=== PATIENT | female | born 1975 ===

== ENCOUNTER 2016-11-12 13:23 | Inpatient (IN) | payer MEDICAID, OTHER ==
[2016-11-12 13:35] VITALS: BMI 36.6
--- NOTE | 2016-11-12 14:17 | ED PDOC ---
Arrival/HPI - General Chief Complaint: Anxiety Time Seen by Provider: 11/12/16 14:00 Historian: Patient - History of Present Illness Narrative History of Present Illness (Text): 11/12/16 14:00 A 41 year old female, whose past medical history includes anxiety, presents to the emergency department with complaints of anxiety. Patient reports symptoms started about 2 months ago, have become more exacerbated over the past two weeks , and especially worsened within the last 2 days. Patient reports intermittent shortness of breath, chest pain, light headedness, arm numbness, nausea, heartburn, diaphoresis, chest palpitations, polyuria, depression, and is restless. She states she is "terrified of snakes popping out of drawers and other places" and "leaving her house". Patient denies any suicidal ideation/ homicidal ideation, vomiting, dysuria, diarrhea, or any other symptoms at this time. Patient's last menstrual cycle was at the end of last month to the beginning of this month. On the of note, patient lives with 21 year old daughter. Patient notes in the past she was seeing a reservations manager but when she started to feel better she stopped going. PMD: None Time/Duration: Other (2 months) Symptom Onset: Gradual Symptom Course: Worsening Quality: Other Activities at Onset: Rest Context: Home Past Medical History - Provider Review Nursing Documentation Reviewed: Yes - Infectious Disease Hx of Infectious Diseases: None - Tetanus Immunization Tetanus Immunization: Unknown - Gastrointestinal Hx Gastrointestinal Ulcer: Yes (2010) Other/Comment: hernia - Genitourinary/Gynecological Hx Genitourinary Disorders: Yes Hx Urinary Tract Infection: Yes Other/Comment: Kidney Stones - Psychiatric Hx Anxiety: Yes Hx Substance Use: No - Surgical History Hx Appendectomy: Yes Hx Section: Yes (x3) Hx Tubal Ligation: Yes - Anesthesia Hx Anesthesia: Yes Hx Anesthesia Reactions: No Hx Malignant Hyperthermia: No - Suicidal Assessment Feels Threatened In Home Enviroment: No Family/Social History - Physician Review Nursing Documentation Reviewed: Yes Family/Social History: Unknown Family HX Smoking Status: Never Smoked Hx Alcohol Use: No Hx Substance Use: No Hx Substance Use Treatment: No Allergies/Home Meds Allergies/Adverse Reactions: Allergies seafood Allergy (Uncoded 11/12/16 13:35) ANAPHYLAXIS Home Medications: Home Meds Medication Instructions Recorded Confirmed Ranitidine HCl [Zantac 75] 1 tab PO PRN PRN 11/12/16 11/12/16 Review of Systems - Physician Review All systems were reviewed & negative as marked: Yes - Review of Systems Constitutional: absent: Fevers Respiratory: SOB. absent: Cough Cardiovascular: Chest Pain, Palpitations. absent: Edema Gastrointestinal: Nausea, Other (Heartburn). absent: Abdominal Pain, Diarrhea, Vomiting Genitourinary Female: absent: Dysuria Endocrine: Diaphoresis, Polyuria Psychiatric: Anxiety, Depression. absent: Suicidal Ideation Physical Exam Vital Signs Reviewed: Yes Vital Signs Temp Pulse Resp BP Pulse Ox 11/12/16 14:33 97.9 F 86 20 131/73 99 11/12/16 13:38 97.7 F 76 19 132/85 100 Temperature: Afebrile Blood Pressure: Normal Pulse: Regular Respiratory Rate: Normal Appearance: Positive for: Non-Toxic, Other (Patient appears anxious, restless, and unable to sit.) Pain Distress: None Mental Status: Positive for: Alert and Oriented X 3 - Systems Exam Head: Present: Atraumatic, Normocephalic Pupils: Present: PERRL Conjunctiva: Present: Normal Mouth: Present: Moist Mucous Membranes Pharnyx: Present: Normal. No: ERYTHEMA, EXUDATE Neck: Present: Normal Range of Motion Respiratory/Chest: Present: Clear to Auscultation, Good Air Exchange. No: Respiratory Distress, Accessory Muscle Use Cardiovascular: Present: Regular Rate and Rhythm, Normal S1, S2. No: Murmurs Abdomen: Present: Normal Bowel Sounds, Other (obese). No: Tenderness, Distention, Peritoneal Signs Back: Present: Normal Inspection Upper Extremity: Present: Normal Inspection. No: Cyanosis, Edema Lower Extremity: Present: Normal Inspection. No: Edema Neurological: Present: GCS=15, CN II-XII Intact, Speech Normal Skin: Present: Warm, Dry, Normal Color. No: Rashes Psychiatric: Present: Alert, Oriented x 3, Anxious. No: Suicidal Ideation, Homicidal Ideation Medical Decision Making ED Course and Treatment: 11/12/16 14:00 Impression: A 41 year old female with anxiety. On physical examination the patient appears to be anxious, restless, and unable to sit. Differential Diagnosis include but are not limited to: Anxiety vs. ACS vs. Musculoskeletal chest pain vs. GERD Plan: -- EKG -- Chest X-ray -- Labs -- Urinalysis -- Klonopin -- Reassess and disposition Prior Visits: Notes and results from previous visits were reviewed. The patient last presented to the emergency department on 11/16/14 for evaluation of right sided lower abdominal pain. Progress Notes: Patient is PERC negative and unlikely to have pulmonary embolism. Based on patient's history the diagnoses is most likely anxiety. EKG: Ordered, reviewed, and independently interpreted the EKG. Rate : 76 BPM Rhythm : NSR Interpretation : Normal intervals, normal axis, no ST/T changes 11/12/16 16:52 Patient with noted history and presentation with anxiety. Chest pain workup done in the ED is negative with normal CXR, EKG, and labs including cardiac enzymes. Other labs are also unremarkable. Patient has been medically cleared for PES evaluation and psychiatric admission. 11/12/16 17:03 Patient seen by PES and accepted for admission for depression and anxiety. - Lab Interpretations Lab Results: 11/12/16 15:40 11/12/16 15:40 Lab Results 11/12/16 15:40: Alcohol, Quantitative < 10 11/12/16 15:40: Sodium 137, Potassium 4.2, Chloride 101, Carbon Dioxide 29, Anion Gap 11, BUN 14, Creatinine 0.8, Est GFR ( Amer) > 60, Est GFR (Non- Af Amer) > 60, Random Glucose 90, Calcium 9.5, Magnesium 1.9, Total Bilirubin 0.3, AST 51 H, ALT 67 H, Alkaline Phosphatase 97, Lactate Dehydrogenase 464, Total Creatine Kinase 308 H, CK-MB (CK-2) 2.7, CK-MB (CK-2) % Cancelled, Troponin I < 0.01, NT-Pro-B Natriuret Pep 40.8, Total Protein 7.5, Albumin 4.1, Globulin 3.4, Albumin/Globulin Ratio 1.2, Lipase 69 11/12/16 15:40: WBC 7.0, RBC 4.49, Hgb 12.6, Hct 38.8, MCV 86.4, MCH 28.1, MCHC 32.5, RDW 14.5, Plt Count 236, MPV 9.5, Gran % 59.7, Lymph % (Auto) 30.8, [place] % (Auto) 7.2 H, Eos % (Auto) 2.0, Baso % (Auto) 0.3, Gran # 4.18, Lymph # 2.2, Becker # 0.5, Eos # 0.1, Baso # 0.02 11/12/16 14:00: Urine Opiates Screen Negative, Urine Methadone Screen Negative, Ur Barbiturates Screen Negative, Ur Phencyclidine Scrn Negative, Ur Amphetamines Screen Negative, U Benzodiazepines Scrn Negative, U Oth Cocaine Metabols Negative, U Cannabinoids Screen Negative 11/12/16 14:00: Urine Color Light yellow, Urine Appearance Clear, Urine pH 7.0, Ur Specific [place] 1.010, Urine Protein Negative, Urine Glucose (UA) Negative, Urine Ketones Negative, Urine Blood Negative, Urine Nitrate Negative, Urine Bilirubin Negative, Urine Urobilinogen 0.2, Ur Leukocyte Esterase Negative I have reviewed the lab results: Yes - RAD Interpretation Radiology Orders: 11/12/16 14:06 CHEST TWO VIEWS (PA/LAT) [RAD] Stat - Medication Orders Current Medication Orders: Discontinued Medications Clonazepam (Klonopin) 1 mg PO STAT STA PRN Reason: Protocol Stop: 11/12/16 14:09 Last Admin: 11/12/16 14:28 Dose: 1 mg - Scribe Statement The provider has reviewed the documentation as recorded by the Scribmiguel Cantu training under Tracee Temple Provider Scribe Attestation: All medical record entries made by the Scribe were at my direction and personally dictated by me. I have reviewed the chart and agree that the record accurately reflects my personal performance of the history, physical exam, medical decision making, and the department course for this patient. I have also personally directed, reviewed, and agree with the discharge instructions and disposition. Disposition/Present on Arrival - Present on Arrival Any Indicators Present on Arrival: No History of DVT/PE: No History of Uncontrolled Diabetes: No Urinary Catheter: No History of Decub. Ulcer: No History Surgical Site Infection Following: None - Disposition Have Diagnosis and Disposition been Completed?: Yes Diagnosis: Anxiety Disposition: HOSPITALIZED Disposition Time: 16:45 Patient Plan: Admission Patient Problems: Current Active Problems Problem Status Onset Anxiety Acute Condition: FAIR Referrals: PCP,NO [Primary Care Provider] - Follow up with primary
[2016-11-12 14:31] LABS: URINE BILIRUBIN NEGATIVE (NEGATIVE); URINE BLOOD NEGATIVE (NEGATIVE); URINE GLUCOSE (UA) NEGATIVE (NEGATIVE); URINE KETONE NEGATIVE (NEGATIVE); URINE LEUKOCYTE ESTERASE NEGATIVE Leu/uL (NEGATIVE); URINE PROTEIN NEGATIVE mg/dL (<30 mg/dL); URINE UROBILINOGEN 0.2 E.U./dL (<1 E.U./dL)
[2016-11-12 14:32] LABS: URINE APPEARANCE CLEAR (CLEAR); URINE COLOR LIGHT YELLOW (YELLOW)
[2016-11-12 15:50] LABS: ADD MANUAL DIFF? NO
[2016-11-12 15:54] LABS: BASO # 0.02 K/mm3 (0.0-2.0); BASO % 0.3 % (0.0-3.0); EOS # 0.1 (0.0-0.7); GRAN # 4.18 (1.4-6.5); GRAN % 59.7 % (50.0-68.0); HEMATOCRIT 38.8 % (36.0-48.0); LYMPH # 2.2 (1.2-3.4); LYMPH % 30.8 % (22.0-35.0); MEAN CELL VOLUME 86.4 fL (80.0-105.0); MEAN CORPUSCULAR HEMOGLOBIN 28.1 pg (25.0-35.0); MEAN CORPUSCULAR HGB CONC 32.5 g/dl (31.0-37.0); MEAN PLATELET VOLUME 9.5 fl (7.0-11.0); MONO # 0.5 (0.1-0.6); MONO % 7.2 % (1.0-6.0); PLATELET COUNT 236 10^3/uL (120.0-450.0); RED CELL DISTRIBUTION WIDTH 14.5 % (11.5-14.5)
[2016-11-12 16:04] LABS: ALB/GLOB RATIO 1.2 (1.1-1.8); ALKALINE PHOSPHATASE 97 U/L (38-133); ALT/SGPT 67 U/L (7-56); AST/SGOT 51 U/L (15-39); BILIRUBIN,TOTAL 0.3 mg/dL (0.2-1.3); BLOOD UREA NITROGEN 14 mg/dL (7-21); CALCIUM 9.5 mg/dL (8.4-10.5); CARBON DIOXIDE 29 mmol/L (21-33); CHLORIDE 101 mmol/L (98-107); GFR AFRICAN-AMERICAN > 60; GLUCOSE,RANDOM 90 mg/dL (70-110); LIPASE 69 U/L (23-300); MAGNESIUM 1.9 mg/dL (1.7-2.2); POTASSIUM 4.2 mmol/L (3.6-5.0); SODIUM 137 mmol/L (132-148); TOTAL PROTEIN 7.5 g/dL (5.8-8.3)
--- NOTE | 2016-11-12 16:06 | RAD ---
HISTORY: chest pain COMPARISON: No prior. TECHNIQUE: Chest PA and lateral FINDINGS: LUNGS: No active pulmonary disease. PLEURA: No significant pleural effusion identified. No pneumothorax apparent. CARDIOVASCULAR: Normal. OSSEOUS STRUCTURES: Minor multilevel degenerative spondylosis of the thoracic spine VISUALIZED UPPER ABDOMEN: Normal. OTHER FINDINGS: None. IMPRESSION: No active disease.
[2016-11-12 16:32] LABS: TROPONIN I < 0.01 ng/mL
--- NOTE | 2016-11-12 17:53 | CARD ---
APPROVED REPORT EKG Measurement Heart [id number] <Conclusion> Normal sinus rhythm Normal ECG
[2016-11-12 19:11] VITALS: O2SAT 97
[2016-11-12] MEDS ORDERED: Magnesium Hydroxide Susp 30 ml UD PO PRN (23:21)
--- NOTE | 2016-11-13 00:18 | PCM.BM ---
<Inga Askew - Last Filed: 11/13/16 00:16> Treatment Plan Problems - Problems identified on initial assessmt anxiety Time Initiated: : Assessment reference: NA Status: Active Problem 2 Date Initiated: ocd Time Initiated: : Assessment reference: NA Status: Active <JeronimomarcecelinaRenetta Patrick - Last Filed: 11/13/16 09:27> DSM5-Treatment Plan - Diagnosis (1) OCD (obsessive compulsive disorder) Status: Acute Interventions: 11/13/16 09:28 * Assess/adjust medications daily and /or as needed * See patient on an individual basis 7x/week to assess symptoms of anxiety * Educate patient regarding benefits, side effects and risks of prescribed medications * medications compliance * CBT (cognitive behavioral therapy) * f/u with therapist and psychiatrist * Exposure and relapse prevention (as outpatient) (2) MDD (major depressive disorder) Status: Acute Interventions: 11/13/16 09:30 * Assess/adjust medications daily and /or as needed * See patient on an individual basis 7x/week to assess symptoms of depression * Monitor for side effects & effectiveness of medications * suicide and homicide prevention * medication compliance * safety plan * coping strategies * family support * CBT/supportive therapy as outpatient (3) Anxiety Status: Acute Interventions: 11/13/16 09:31 * Assess/adjust medications daily and /or as needed * See patient on an individual basis 7x/week to assess symptoms of anxiety * Educate patient regarding benefits, side effects and risks of prescribed medications * meds/ follow up compliance * therapy as outpatient * CBT as outpatient (cognitive behavioral therapy) <Jennifer Nevarez - Last Filed: 11/13/16 16:49> Treatment Plan Problems - Problems identified on initial assessmt ocd Date Initiated: 11/13/16 Time Initiated: 11:00 Assessment reference: NA Status: Active major depressive Date Initiated: 11/13/16 Time Initiated: 11:00 Assessment reference: NA Status: Active Priority: 3 OCD Date Initiated: 11/13/16 Time Initiated: 11:00 Assessment reference: NA Status: Active Priority: 1 Anxiety Date Initiated: 11/13/16 Time Initiated: 11:00 Assessment reference: NA Status: Active Problem 2 OCD Date Initiated: 11/13/16 Treatment team patient informa Patient Assests: adapts well, cooperative, motivated, ADL independent, physically healthy, good support system, negotiates basic needs, cognitively intact Patient Liabilities: live alone, relationship conflicts - Milieu Protocol Maintain good personal hygiene: daily Encourage regular showers, daily Remind patient to perform daily oral care, daily Assist patient to perform ADL's Conduct patient checks and document Observation sheet: Q15 minutes Maintain personal safety: daily Educate patient to report safety concerns to staff, daily Monitor environment for contraband/sharps Medication safety: Monitor for expected outcome, potential side effects: daily, Assess barriers to learning: daily, Assess readiness for medication education: daily Family Contact Family contact: Patient agrees to contact - Goals for Treatment Patient goals for treatment: i want to be normal Discharge/Continuing Care - Education Needs Education Needs: Patient Medication, Patient Diagnosis/Disease Process, Patient Coping Skills, Patient Community resources, Patient Activities of Daily Living, Patient Aftercare Safety Plan - Discharge Discharge Criteria: Free of Suicidal thoughts, Free of paranoid thoughts, Free of agitation, Reduction of target symptoms Discharge to:: Home - Treatment Team Participation Discussed with Family/SO: No Was Patient/Family/SO present at Treatment Team Meeting: Yes <Beverly Gregory - Last Filed: 11/13/16 17:33> Family Contact Family involvement: Family/SO is involved
[2016-11-13 07:35] VITALS: RESP 20
[2016-11-13 08:34] LABS: CHOLESTEROL 158 mg/dL (130-200)
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
--- NOTE | 2016-11-13 14:48 | CP.PCM.CON ---
<TravonHaim - Last Filed: 11/13/16 15:04> History of Present Illness - History of Present Illness History of Present Illness: Medicine Consult Note: 41 F with pmh of asthma, and hiatal hernia, anxiety, OCD, depression, presents for continuous feeling of anxiety over the past few weeks. She states that her anxiety has been worse in the past few days and she has alot hard time even leaving the house now. She states that she had similar symptoms 2 years ago and was prescribed a medication and she got better so she stopped taking it. Denies any SI, HI, or visual/auditory hallucination. She states that she has anxiety about snakes being in drawers, walking under a bridge thinking it will collapse etc. Kait also c/o some mild mid epigastric pain that she attributes to increase gastric acid and her hiatal hernia. No other complaints. Denies any lala, dizziness, f/c, sob, cp, abd pain, urinary or bm changes. PMH: as above PSH: x 3 and appendectomy Med: denies All: seafood FH: adopted when she was 3 months old SH: denies smoking, drugs; Drinks socially Review of Systems - Review of Systems All systems: reviewed and no additional remarkable complaints except (HPI) Past Patient History - Infectious Disease Hx of Infectious Diseases: None - Tetanus Immunizations Tetanus Immunization: Unknown - Past Social History Smoking Status: Never Smoked - CARDIAC Hx Cardiac Disorders: No Hx Hypertension: No - PULMONARY Hx Tuberculosis: No - NEUROLOGICAL HX Cerebrovascular Accident: No Hx Seizures: No - HEMATOLOGICAL/ONCOLOGICAL Hx Cancer: No Hx Human Immunodeficiency Virus (HIV): No - GASTROINTESTINAL Other/Comment: hernia - GENITOURINARY/GYNECOLOGICAL Hx Genitourinary Disorders: Yes Hx Urinary Tract Infection: Yes Other/Comment: Kidney Stones - PSYCHIATRIC Hx Substance Use: No - SURGICAL HISTORY Hx Appendectomy: Yes Hx Section: Yes (x3) Hx Tubal Ligation: Yes - ANESTHESIA Hx Anesthesia: Yes Hx Anesthesia Reactions: No Hx Malignant Hyperthermia: No Meds Allergies/Adverse Reactions: Allergies Allergy/AdvReac Type Severity Reaction Status Date / Time seafood Allergy ANAPHYLAXIS Uncoded 11/12/16 23:31 - Medications Medications: Current Medications Acetaminophen (Tylenol 325mg Tab) 650 mg PO Q4 PRN PRN Reason: Pain, moderate (4-7) Al Hydrox/Mg Hydrox/Simethicone (Maalox Plus 30 Ml) 30 ml PO DAILY PRN PRN Reason: Upset Stomach Clonazepam (Klonopin) 0.5 mg PO BID DEZ PRN Reason: Protocol Fluoxetine HCl (Prozac) 10 mg PO DAILY DEZ Magnesium Hydroxide (Milk Of Magnesia) 30 ml PO DAILY PRN PRN Reason: Constipation Pantoprazole Sodium (Protonix Ec Tab) 40 mg PO 0600 DEZ Quetiapine Fumarate (Seroquel) 50 mg PO HS DEZ PRN Reason: Protocol Zaleplon (Sonata) 10 mg PO HS DEZ Physical Exam - Constitutional Appears: No Acute Distress - Head Exam Head Exam: ATRAUMATIC, NORMAL INSPECTION, NORMOCEPHALIC - Eye Exam Eye Exam: EOMI, Normal appearance, PERRL Pupil Exam: NORMAL ACCOMODATION, PERRL - ENT Exam ENT Exam: Mucous Membranes Moist, Normal Exam - Neck Exam Neck exam: Positive for: Normal Inspection - Respiratory Exam Respiratory Exam: Clear to Auscultation Bilateral, NORMAL BREATHING PATTERN. absent: Wheezes - Cardiovascular Exam Cardiovascular Exam: REGULAR RHYTHM - GI/Abdominal Exam GI & Abdominal Exam: Normal Bowel Sounds, Soft, Tenderness (Mid epigastric and RUQ tenderness ) - Extremities Exam Extremities exam: Positive for: normal inspection - Back Exam Back exam: NORMAL INSPECTION - Neurological Exam Neurological exam: Alert, CN II-XII Intact, Normal Gait, Oriented x3, Reflexes Normal - Psychiatric Exam Psychiatric exam: Anxious, Depressed - Skin Skin Exam: Dry, Intact, Normal Color, Warm Results - Vital Signs Recent Vital Signs: Last Vital Signs Temp 97.9 F 11/13/16 07:34 Pulse 69 11/13/16 07:34 Resp 20 11/13/16 07:34 BP 96/51 L 11/13/16 07:34 Pulse Ox 97 11/12/16 19:00 - Labs Result Diagrams: 11/12/16 15:40 11/12/16 15:40 Labs: Laboratory Results - last 24 hr 11/13/16 11/13/16 11/13/16 07:30 07:30 07:30 Fasting Glucose 87 Triglycerides 91 Cholesterol 158 LDL Cholesterol Direct 95 HDL Cholesterol 45 TSH 3rd Generation 1.87 Assessment & Plan - Assessment and Plan (Free Text) Assessment: 41 F with pmh of asthma, and hiatal hernia, anxiety, OCD, depression, presents for continuous feeling of anxiety over the past few weeks. Pt found to have abdominal pain with elevated LFTs. 1. Anxiety, OCD, Depression - Management as per psychiatry - Cont to monitor 2. Elevated LFTs - Abdominal complete US - F/u CMP - Hepatitis panel 3. GI/DVT ppx - Protonix and ambulation Case and plan was seen, reviewed and discussed in detail with Dr Malone. <Rochelle Malone - Last Filed: 11/13/16 15:34> Meds - Medications Medications: Current Medications Acetaminophen (Tylenol 325mg Tab) 650 mg PO Q4 PRN PRN Reason: Pain, moderate (4-7) Al Hydrox/Mg Hydrox/Simethicone (Maalox Plus 30 Ml) 30 ml PO DAILY PRN PRN Reason: Upset Stomach Clonazepam (Klonopin) 0.5 mg PO BID DEZ PRN Reason: Protocol Fluoxetine HCl (Prozac) 10 mg PO DAILY DEZ Magnesium Hydroxide (Milk Of Magnesia) 30 ml PO DAILY PRN PRN Reason: Constipation Pantoprazole Sodium (Protonix Ec Tab) 40 mg PO 0600 DEZ Quetiapine Fumarate (Seroquel) 50 mg PO HS DEZ PRN Reason: Protocol Zaleplon (Sonata) 10 mg PO HS DEZ Results - Vital Signs Recent Vital Signs: Last Vital Signs Temp 97.9 F 11/13/16 07:34 Pulse 69 11/13/16 07:34 Resp 20 11/13/16 07:34 BP 96/51 L 11/13/16 07:34 Pulse Ox 97 11/12/16 19:00 - Labs Result Diagrams: 11/12/16 15:40 11/12/16 15:40 Labs: Laboratory Results - last 24 hr 11/13/16 11/13/16 11/13/16 07:30 07:30 07:30 Fasting Glucose 87 Triglycerides 91 Cholesterol 158 LDL Cholesterol Direct 95 HDL Cholesterol 45 TSH 3rd Generation 1.87 Attending/Attestation - Attestation I have personally seen and examined this patient.: Yes I have fully participated in the care of the patient.: Yes I have reviewed all pertinent clinical information: Yes Notes (Text): 11/13/16 15:29 MEDICAL CONSULTATION 41 year old female with past medical history of asthma, depression and anxiety who presented with depressed mood and worsening anxiety for the past several weeks. Continue with management for anxiety/depression as per psychiatrist. She is currently on klonopin, prozac and seroquel. She was found to have mildly elevated LFTs. On examination she has mild epigastric/RUQ pain. She denies excessive alcohol or tylenol use. US abdomen and hepatitis panel is ordered. Continue with protonix and diet as tolerated. Will follow. Thank you Dr. Escobar for allowing us to participate in the care of this patient. We will follow up labs and abdominal ultrasound.
--- NOTE | 2016-11-13 20:23 | US ---
EXAM: US Abdomen Complete CLINICAL HISTORY: The patient age is 41 years old and is female; Pain; Abdominal pain; Flank; Right upper quadrant (ruq); Additional info: [facility] pain Facility exam id and description: Us abd abdomen complete TECHNIQUE: Real-time ultrasound of the abdomen (complete) with image documentation. EXAM DATE/TIME: 11/13/2016 2:26 PM COMPARISON: No relevant prior studies available. FINDINGS: Liver: There is heterogeneous increased echotexture of the liver, most commonly due to fatty infiltration, but other chronic liver diseases may have a similar appearance. The liver measures 15.0 x 13.2 cm. Gallbladder: There is mild gallbladder wall thickening measuring 0.36 cm. Isoechoic sludge is visualized within the gallbladder. A few isoechoic polyps or non-shadowing gallstones are seen within the gallbladder. Common bile duct: The common bile duct measures 0.27 cm, which is within normal limits. Pancreas: There is heterogeneous increased echogenicity of the visualized pancreas, suggestive of fatty infiltration. There is suboptimal evaluation of the tail of the pancreas due to bowel gas. Kidneys: The right kidney measures 11.0 x 3.8 x 5.4 cm. The left kidney measures 9.2 x 5.9 x 5.3 cm. There is a limited evaluation of the left kidney. No shadowing stones. No hydronephrosis. Spleen: The spleen measures 8.6 x 4.1 cm and is normal in echotexture. Aorta: The visualized aorta is patent. There is a limited evaluation of the aorta. Inferior vena cava: The IVC is patent, as visualized. IMPRESSION: 1. There is heterogeneous increased echotexture of the liver, most commonly due to fatty infiltration, but other chronic liver diseases may have a similar appearance. 2. There is heterogeneous increased echogenicity of the visualized pancreas, suggestive of fatty infiltration. Evaluation of the pancreas is limited. 3. There is mild gallbladder wall thickening. Isoechoic sludge is visualized within the gallbladder. A few isoechoic polyps or non-shadowing gallstones are seen within the gallbladder. Clinical correlation and follow-up ultrasound are recommended. 4. Additional findings described above.
[2016-11-14] MEDS: Pantoprazole 40 mg EC Tab PO SCH (06:52)
[2016-11-14 08:31] LABS: ALB/GLOB RATIO 1.2 (1.1-1.8); ALKALINE PHOSPHATASE 88 U/L (38-133); ALT/SGPT 56 U/L (7-56); AST/SGOT 37 U/L (15-39); BILIRUBIN,TOTAL 0.3 mg/dL (0.2-1.3); BLOOD UREA NITROGEN 11 mg/dL (7-21); CALCIUM 9.1 mg/dL (8.4-10.5); CARBON DIOXIDE 25 mmol/L (21-33); CHLORIDE 105 mmol/L (98-107); GFR AFRICAN-AMERICAN > 60; GLUCOSE,RANDOM 85 mg/dL (70-110); POTASSIUM 3.9 mmol/L (3.6-5.0); SODIUM 139 mmol/L (132-148)
--- NOTE | 2016-11-14 12:50 | CP.PCM.PN ---
Addendum entered and electronically signed by Haim Cool DO 11/15/16 12:03 : LFTs trended down. HIDA scan negative. Ursodiol started 300mg TID. Pt was seen and examined. Recommended pt to follow up with asbestos coverer in 3 months for follow up abdominal US for gallbladder polyps. Explained to the pt in depth that if her RUQ abdominal pain worsens to follow up with surgery for consideration of outpatient cholecystectomy. Pt verbalized understanding. Original Note: <Haim Cool - Last Filed: 11/14/16 12:43> Subjective - Date & Time of Evaluation Date of Evaluation: 11/14/16 Time of Evaluation: 07:10 - Subjective Subjective: Hospitalist Progress note: Pt seen and examined at bedside. No acute events overnight. Pt still complains of being very anxious. She also c/o of mid epigastric and RUQ abdominal pain accompanied with nausea but denies any vomiting. . Denies any headaches, dizziness, f/c, sob, cp, urinary or bm changes. Objective - Vital Signs/Intake and Output Vital Signs (last 24 hours): Temp Pulse Resp BP Pulse Ox 98.2 F 71 20 134/111 H 97 11/14/16 07:48 11/14/16 07:48 11/14/16 07:48 11/14/16 07:48 11/12/16 19:00 - Medications Medications: Current Medications Acetaminophen (Tylenol 325mg Tab) 650 mg PO Q4 PRN PRN Reason: Pain, moderate (4-7) Al Hydrox/Mg Hydrox/Simethicone (Maalox Plus 30 Ml) 30 ml PO DAILY PRN PRN Reason: Upset Stomach Clonazepam (Klonopin) 0.5 mg PO BID DEZ PRN Reason: Protocol Last Admin: 11/14/16 10:21 Dose: 0.5 mg Fluoxetine HCl (Prozac) 10 mg PO DAILY [facility] Last Admin: 11/14/16 10:22 Dose: 10 mg Magnesium Hydroxide (Milk Of Magnesia) 30 ml PO DAILY PRN PRN Reason: Constipation Pantoprazole Sodium (Protonix Ec Tab) 40 mg PO 0600 [facility] Last Admin: 11/14/16 06:52 Dose: Not Given Quetiapine Fumarate (Seroquel) 50 mg PO HS DEZ PRN Reason: Protocol Last Admin: 11/13/16 21:08 Dose: 50 mg Zaleplon (Sonata) 10 mg PO HS DEZ Last Admin: 11/13/16 21:08 Dose: 10 mg - Labs Labs: 11/14/16 07:00 - Constitutional Appears: No Acute Distress - Head Exam Head Exam: ATRAUMATIC, NORMAL INSPECTION, NORMOCEPHALIC - Eye Exam Eye Exam: EOMI, Normal appearance, PERRL Pupil Exam: NORMAL ACCOMODATION, PERRL - ENT Exam ENT Exam: Mucous Membranes Moist, Normal Exam - Neck Exam Neck Exam: Full ROM, Normal Inspection. absent: Lymphadenopathy - Respiratory Exam Respiratory Exam: Clear to Ausculation Bilateral, NORMAL BREATHING PATTERN. absent: Wheezes - Cardiovascular Exam Cardiovascular Exam: REGULAR RHYTHM, RRR, +S1, +S2. absent: Murmur - GI/Abdominal Exam GI & Abdominal Exam: Soft, Tenderness, Normal Bowel Sounds. absent: Distended Additional comments: RUQ, midepigastric pain - Extremities Exam Extremities Exam: Full ROM, Normal Capillary Refill, Normal Inspection. absent : Joint Swelling, Pedal Edema - Back Exam Back Exam: NORMAL INSPECTION - Neurological Exam Neurological Exam: Alert, Awake, CN II-XII Intact, Normal Gait, Oriented x3 - Psychiatric Exam Psychiatric exam: Normal Affect, Normal Mood - Skin Skin Exam: Dry, Intact, Normal Color, Warm Assessment and Plan - Assessment and Plan (Free Text) Assessment: 41 F with pmh of asthma, and hiatal hernia, anxiety, OCD, depression, presents for continuous feeling of anxiety over the past few weeks. Pt found to have Mid epigastric and RUQ abdominal pain with elevated LFTs now resolved. 1. Anxiety, OCD, Depression - Management as per psychiatry - Cont to monitor 2. Elevated LFTs - now resolved - Pt still c/o RUQ pain - HIDA scan ordered - Abd US: Heterogenpus increase echotexture of the liver, mc due to fatty infiltration, cannot rule out other chronic dx, Heterogeneous increase echotexture of the pancreas mc due to fatty infiltration, limited evaluation. Mild gallbladder wall thickening with isoechoic sludge, few isoechoic polyps or non shadowing gallstones are seen in gallbladder. follow up US is recommended. - Hep panel / RPR - both negative - Diet modification - Low fat and greasy foods 3. GI/DVT ppx - Protonix and ambulation Case and plan was seen, reviewed and discussed in detail with Dr Malone. <Rochelle Malone - Last Filed: 11/15/16 14:54> Objective - Vital Signs/Intake and Output Vital Signs (last 24 hours): Temp Pulse Resp BP Pulse Ox 98.1 F 73 20 87/56 L 97 11/15/16 07:37 11/15/16 07:37 11/15/16 07:37 11/15/16 07:37 11/12/16 19:00 - Medications Medications: Current Medications Acetaminophen (Tylenol 325mg Tab) 650 mg PO Q4 PRN PRN Reason: Pain, moderate (4-7) Al Hydrox/Mg Hydrox/Simethicone (Maalox Plus 30 Ml) 30 ml PO DAILY PRN PRN Reason: Upset Stomach Last Admin: 11/14/16 22:27 Dose: 30 ml Clonazepam (Klonopin) 0.5 mg PO BID DEZ PRN Reason: Protocol Last Admin: 11/15/16 08:43 Dose: 0.5 mg Fluoxetine HCl (Prozac) 20 mg PO DAILY [facility] Last Admin: 11/15/16 08:43 Dose: 20 mg Magnesium Hydroxide (Milk Of Magnesia) 30 ml PO DAILY PRN PRN Reason: Constipation Pantoprazole Sodium (Protonix Ec Tab) 40 mg PO 0600 [facility] Last Admin: 11/15/16 08:44 Dose: 40 mg Quetiapine Fumarate (Seroquel) 50 mg PO HS [facility] PRN Reason: Protocol Last Admin: 11/14/16 21:13 Dose: 50 mg Ursodiol (Actigall) 300 mg PO TID [facility] Last Admin: 11/15/16 12:59 Dose: Not Given Zaleplon (Sonata) 10 mg PO HS [facility] Last Admin: 11/14/16 21:12 Dose: 10 mg - Labs Labs: 11/14/16 07:00 Attending/Attestation - Attestation I have personally seen and examined this patient.: Yes I have fully participated in the care of the patient.: Yes I have reviewed all pertinent clinical information, including history, physical exam and plan: Yes Notes (Text): 11/15/16 14:46 41 year old female with past medical history of asthma, depression and anxiety who presented with depressed mood and worsening anxiety for the past several weeks. Continue with management for anxiety/depression as per psychiatrist. She was found to have mildly elevated LFTs and mild epigastric/RUQ pain. US abdomen was done which showed fatty infiltration of liver and pancreas (lipase normal), mild gallbladder wall thickening with sludge and few polyps. HIDA scan was negative. LFTs and abdominal pain have improved. Hepatitis panel was negative. Diet was changed to low fat, low cholesterol diet which she is tolerating. Can start trial of ursodial. Recommended to repeat US abdomen in 3 months. If abdominal pain persists or worsens may need surgical evaluation for cholecystectomy which at this time can be done as an elective setting. Thank you Dr. Escobar for allowing us to participate in the care of this patient. We will sign off. Please reconsult as needed. Rochelle Malone MD Hospitalist.
--- NOTE | 2016-11-14 14:42 | PCM.PYCHPN ---
Psychiatric Progress Note - Psychiatric Progress Note Patient seen today, length of contact: 30 minutes Patient Chief Complaint: "I M not that well today" Problems Identified/Issues Discussed: Suicide/ homicide prevention, past psychiatric h/o, current psychiatric symptoms , medical problems, risk/benefits and alternatives of medications, medications compliance, coping strategies, substance abuse h/o, relapse prevention, importance of follow up with psychiatrist and therapist, discharge plan. Medical Problems: patient is overweight, no major medical issues. Diagnostic Results: 11/12/16 15:40 11/14/16 07:00 Lab Results 11/14/16 07:00: Sodium 139, Potassium 3.9, Chloride 105, Carbon Dioxide 25, Anion Gap 13, BUN 11, Creatinine 0.8, Est GFR ( Amer) > 60, Est GFR (Non- Af Amer) > 60, Random Glucose 85, Calcium 9.1, Total Bilirubin 0.3, AST 37, ALT 56, Alkaline Phosphatase 88, Total Protein 7.0, Albumin 3.8, Globulin 3.2, Albumin/Globulin Ratio 1.2 11/13/16 07:30: Hepatitis A IgM Ab Negative, Hep Bs Antigen Negative, Hep B Core IgM Ab Negative, Hepatitis C Antibody Negative 11/13/16 07:30: RPR Nonreactive 11/13/16 07:30: TSH 3rd Generation 1.87 11/13/16 07:30: Fasting Glucose 87 11/13/16 07:30: Triglycerides 91, Cholesterol 158, LDL Cholesterol Direct 95, HDL Cholesterol 45 11/12/16 15:40: Alcohol, Quantitative < 10 11/12/16 15:40: Sodium 137, Potassium 4.2, Chloride 101, Carbon Dioxide 29, Anion Gap 11, BUN 14, Creatinine 0.8, Est GFR ( Amer) > 60, Est GFR (Non- Af Amer) > 60, Random Glucose 90, Calcium 9.5, Magnesium 1.9, Total Bilirubin 0.3, AST 51 H, ALT 67 H, Alkaline Phosphatase 97, Lactate Dehydrogenase 464, Total Creatine Kinase 308 H, CK-MB (CK-2) 2.7, CK-MB (CK-2) % Cancelled, Troponin I < 0.01, NT-Pro-B Natriuret Pep 40.8, Total Protein 7.5, Albumin 4.1, Globulin 3.4, Albumin/Globulin Ratio 1.2, Lipase 69 06/20/17 15:40: WBC 7.0, RBC 4.49, Hgb 12.6, Hct 38.8, MCV 86.4, MCH 28.1, MCHC 32.5, RDW 14.5, Plt Count 236, MPV 9.5, Gran % 59.7, Lymph % (Auto) 30.8, [place] % (Auto) 7.2 H, Eos % (Auto) 2.0, Baso % (Auto) 0.3, Gran # 4.18, Lymph # 2.2, [place] # 0.5, Eos # 0.1, Baso # 0.02 11/12/16 14:00: Urine Opiates Screen Negative, Urine Methadone Screen Negative, Ur Barbiturates Screen Negative, Ur Phencyclidine Scrn Negative, Ur Amphetamines Screen Negative, U Benzodiazepines Scrn Negative, U Oth Cocaine Metabols Negative, U Cannabinoids Screen Negative 11/12/16 14:00: Urine Color Light yellow, Urine Appearance Clear, Urine pH 7.0, Ur Specific [place] 1.010, Urine Protein Negative, Urine Glucose (UA) Negative, Urine Ketones Negative, Urine Blood Negative, Urine Nitrate Negative, Urine Bilirubin Negative, Urine Urobilinogen 0.2, Ur Leukocyte Esterase Negative Vital Signs Temp Pulse Resp BP Pulse Ox 11/14/16 07:48 98.2 F 71 20 134/111 H 11/13/16 15:53 73 122/79 11/13/16 07:34 97.9 F 69 20 96/51 L 11/12/16 20:40 98.1 F 78 18 115/72 11/12/16 19:00 122 H 18 156/72 H 97 11/12/16 18:00 78 17 118/73 99 11/12/16 16:00 81 18 128/74 99 11/12/16 14:33 97.9 F 86 20 131/73 99 11/12/16 13:38 97.7 F 76 19 132/85 100 DSM 5 Symptoms Update: Shortly pt is 41 yo female, no previous psych admissions, h/o OCD, MDD , PTSD, MACK, currently lives in [place], in the process of divorce, has three grown kids, currently unemployed, brought herself to the ED for evaluation of depressive symptoms, worsening of anxiety, feeling hopeless, helpless, pt also was having worsening of OCD, was not able to function, pt needs further evaluation and stabilization and med management Pt was seen in her room, presented,, no upper extremities shakes, less tearful, but she'll patient presented to be depressed, flat affect, patient reported that she slept better, at the same time patient still feels hopeless, helpless, low energy, difficulty to concentrate. Patient reported that she feels less emotional, at the same time patient complained to feel "numb" Patient is not that obsessed with the snakes, was able to open the door without any distress. Obviously patient has some OCD symptoms, patient nights and is very well organized all objects are in the right order very neat. As per nursing report patient is self isolating, not attending groups, flat affect, no aggression, no psychosis no agitation. DSM 5 Diagnosis: MDD OCD MACK PTSD Medication Change: Yes (Prozac increased) Medical Record Reviewed: Yes Consults ordered or reviewed: medical consult appreciated please see notes for more detailed information Mental Status Examination - Cognitive Function Orientation: Person, Place, Situation, Time Memory: Intact Attention: Poor Concentration: Poor Association: WNL Fund of Knowledge: WNL - Mood Mood: Depressed, Anxious - Affect Affect: Constricted (anxious, tearful) - Formal Thought Process Formal Thought Process: Paranoia (pt was afraid of snakes in the drawers) - Suicidal Ideation Suicidal Ideation: No - Homicidal Ideation Homicidal Ideation: No Goal/Treatment Plan - Goal/Treatment Plan Need for Continued Stay: Remain at risks for inpatient hospitalization, Severe depression anxiety, Discharge may exacerbated symptoms, Severe functional impairment Progress Toward Problem(s) and Goals/Treatment Plan: Milieu/structure/supportive therapy prozac 20mg po for depression and anxiety klonopin 0.5mg po bid for anxiety sonata 10mg hs for insomnia seroquel 50mg hs for psychotic symptoms family involvement SW evaluation medical evaluation will monitor closely Estimated Date of D/C: 11/19/16 (we'll monitor closely)
--- NOTE | 2016-11-14 17:27 | NM ---
PROCEDURE: Radionuclide hepatobiliary scan HISTORY: RUQ pain, r/o cholecystitis COMPARISON: Not available TECHNIQUE: 5.3 mCi of technetium 99 M mebrofenin was injected intravenously. Images of the abdomen were obtained over 60 minutes. . FINDINGS: The gallbladder is visualized by 5 minutes. Bowel is visualized by 15 minutes. There is normal uptake and excretion of the radiopharmaceutical by the liver. There is no evidence of biliary dilatation. IMPRESSION: Normal radionuclide hepatobiliary scan. No evidence of cystic duct obstruction.
[2016-11-14] MEDS: Alum-Mag Hydrox-Simethicone Susp (30 mL) PO PRN (22:27)
[2016-11-15] MEDS: Pantoprazole 40 mg EC Tab PO SCH (08:44)
--- NOTE | 2016-11-15 16:42 | PCM.PYCHPN ---
Psychiatric Progress Note - Psychiatric Progress Note Patient seen today, length of contact: 30 minutes Patient Chief Complaint: "I have no energy today, I feel very weak" Problems Identified/Issues Discussed: Suicide/ homicide prevention, past psychiatric h/o, current psychiatric symptoms , medical problems, risk/benefits and alternatives of medications, medications compliance, coping strategies, substance abuse h/o, relapse prevention, importance of follow up with psychiatrist and therapist, discharge plan. Medical Problems: patient is overweight, no major medical issues. Diagnostic Results: 11/12/16 15:40 11/14/16 07:00 Lab Results 11/14/16 07:00: Sodium 139, Potassium 3.9, Chloride 105, Carbon Dioxide 25, Anion Gap 13, BUN 11, Creatinine 0.8, Est GFR ( Amer) > 60, Est GFR (Non- Af Amer) > 60, Random Glucose 85, Calcium 9.1, Total Bilirubin 0.3, AST 37, ALT 56, Alkaline Phosphatase 88, Total Protein 7.0, Albumin 3.8, Globulin 3.2, Albumin/Globulin Ratio 1.2 11/13/16 07:30: Hepatitis A IgM Ab Negative, Hep Bs Antigen Negative, Hep B Core IgM Ab Negative, Hepatitis C Antibody Negative 11/13/16 07:30: RPR Nonreactive 11/13/16 07:30: TSH 3rd Generation 1.87 11/13/16 07:30: Fasting Glucose 87 11/13/16 07:30: Triglycerides 91, Cholesterol 158, LDL Cholesterol Direct 95, HDL Cholesterol 45 11/12/16 15:40: Alcohol, Quantitative < 10 11/12/16 15:40: Sodium 137, Potassium 4.2, Chloride 101, Carbon Dioxide 29, Anion Gap 11, BUN 14, Creatinine 0.8, Est GFR ( Amer) > 60, Est GFR (Non- Af Amer) > 60, Random Glucose 90, Calcium 9.5, Magnesium 1.9, Total Bilirubin 0.3, AST 51 H, ALT 67 H, Alkaline Phosphatase 97, Lactate Dehydrogenase 464, Total Creatine Kinase 308 H, CK-MB (CK-2) 2.7, CK-MB (CK-2) % Cancelled, Troponin I < 0.01, NT-Pro-B Natriuret Pep 40.8, Total Protein 7.5, Albumin 4.1, Globulin 3.4, Albumin/Globulin Ratio 1.2, Lipase 69 11/12/16 15:40: WBC 7.0, RBC 4.49, Hgb 12.6, Hct 38.8, MCV 86.4, MCH 28.1, MCHC 32.5, RDW 14.5, Plt Count 236, MPV 9.5, Gran % 59.7, Lymph % (Auto) 30.8, [place] % (Auto) 7.2 H, Eos % (Auto) 2.0, Baso % (Auto) 0.3, Gran # 4.18, Lymph # 2.2, [place] # 0.5, Eos # 0.1, Baso # 0.02 11/12/16 14:00: Urine Opiates Screen Negative, Urine Methadone Screen Negative, Ur Barbiturates Screen Negative, Ur Phencyclidine Scrn Negative, Ur Amphetamines Screen Negative, U Benzodiazepines Scrn Negative, U Oth Cocaine Metabols Negative, U Cannabinoids Screen Negative 11/12/16 14:00: Urine Color Light yellow, Urine Appearance Clear, Urine pH 7.0, Ur Specific [place] 1.010, Urine Protein Negative, Urine Glucose (UA) Negative, Urine Ketones Negative, Urine Blood Negative, Urine Nitrate Negative, Urine Bilirubin Negative, Urine Urobilinogen 0.2, Ur Leukocyte Esterase Negative Vital Signs Temp Pulse Resp BP Pulse Ox 11/14/16 07:48 98.2 F 71 20 134/111 H 11/13/16 15:53 73 122/79 11/13/16 07:34 97.9 F 69 20 96/51 L 11/12/16 20:40 98.1 F 78 18 115/72 11/12/16 19:00 122 H 18 156/72 H 97 11/12/16 18:00 78 17 118/73 99 11/12/16 16:00 81 18 128/74 99 11/12/16 14:33 97.9 F 86 20 131/73 99 11/12/16 13:38 97.7 F 76 19 132/85 100 Temp Pulse Resp BP Pulse Ox 98.1 F 87 20 133/79 97 11/15/16 07:37 11/15/16 16:00 11/15/16 07:37 11/15/16 16:00 11/12/16 19:00 DSM 5 Symptoms Update: Shortly pt is 41 yo female, no previous psych admissions, h/o OCD, MDD , PTSD, MACK, currently lives in [place], in the process of divorce, has three grown kids, currently unemployed, brought herself to the ED for evaluation of depressive symptoms, worsening of anxiety, feeling hopeless, helpless, pt also was having worsening of OCD, was not able to function, pt needs further evaluation and stabilization and med management Pt was seen in her room, presented Little calmer, no upper extremities shakes, less tearful, but she'll patient presented to be depressed, flat affect, reported to feel "no energy"patient reported that she slept better, at the same time patient still feels hopeless, helpless, difficulty to concentrate. Patient reported that she feels less emotional, at the same time patient complained to feel "numb" Patient is not that obsessed with the snakes, was able to open the drawers without any distress ( patient was paranoid about snakes in the drawers). Obviously patient has some OCD symptoms, patient nights and is very well organized all objects are in the right order very neat. As per nursing report patient is self isolating, not attending groups, flat affect, no aggression, no psychosis no agitation. DSM 5 Diagnosis: MDD OCD MACK PTSD Medication Change: Yes (Seroquel increased) Medical Record Reviewed: Yes Consults ordered or reviewed: medical consult appreciated please see notes for more detailed information Mental Status Examination - Cognitive Function Orientation: Person, Place, Situation, Time Memory: Intact Attention: Poor Concentration: Poor Association: WNL Fund of Knowledge: WNL - Mood Mood: Depressed, Anxious - Affect Affect: Constricted (anxious, tearful) - Formal Thought Process Formal Thought Process: Paranoia (pt was afraid of snakes in the drawers) - Suicidal Ideation Suicidal Ideation: No - Homicidal Ideation Homicidal Ideation: No Goal/Treatment Plan - Goal/Treatment Plan Need for Continued Stay: Remain at risks for inpatient hospitalization, Severe depression anxiety, Discharge may exacerbated symptoms, Severe functional impairment Progress Toward Problem(s) and Goals/Treatment Plan: Milieu/structure/supportive therapy prozac 20mg po for depression and anxiety klonopin 0.5mg po bid for anxiety sonata 10mg hs for insomnia seroquel 100mg hs for psychotic symptoms family involvement SW evaluation medical evaluation will monitor closely Estimated Date of D/C: 11/19/16 (we'll monitor closely)
[2016-11-16] MEDS: Pantoprazole 40 mg EC Tab PO SCH (08:51)
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
[2016-11-16] MEDS: Alum-Mag Hydrox-Simethicone Susp (30 mL) PO PRN (13:25)
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
[2016-11-17] MEDS: Pantoprazole 40 mg EC Tab PO SCH (12:22)
[2016-11-18] MEDS: Pantoprazole 40 mg EC Tab PO SCH (08:44)
[2016-11-19] MEDS: Alum-Mag Hydrox-Simethicone Susp (30 mL) PO PRN ×2 (00:17→10:18)
--- NOTE | 2016-11-19 00:27 | PN ---
DATE: 11/18/2016 Chart reviewed and case discussed with nursing. Covering for Dr. Escobar. The patient has signed a 48-hour notice. The patient, who appears to be somewhat pressured, indicates that her mood and affect have improved. She is anxious to be with her daughter who is . The patient's past history consists of having been diagnosed with a bipolar disorder. She had been u nder the care of a local psychiatrist, Dr. Puga, approximately 2 years ago. She saw about 3 times before she could no longer afford his services. She was then followed at the [facility]. The patient appears to be racy in thought and speech presently (although not terribly so) and she rep ortedly engages in obsessive compulsive thinking and behaviors. She presently is being maintained psychotropically on Klonopin 0.5 mg b.i.d., Prozac 20, Seroquel 100 mg at bedtime, Sonata 10 mg at bedtime. Andrei Kaplan MD, PhD cc: [id number] TT: 11/19/2016 00:27:02 Confirmation # [id number] Dictation # [id number] dn
[2016-11-19 07:05] VITALS: BP 107/73; PULSE 91; TEMP 97.3
[2016-11-19] MEDS: Pantoprazole 40 mg EC Tab PO SCH (08:21)
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
== END 2016-11-19 18:20 | disposition home or self-care (01) | DRG 882 ==
LOC: ED 13:23 → ERH 17:19 → PSYC 20:48
PROVIDERS: ADMIT Psychiatry & Neurology Psychiatry; ATTEND Psychiatry & Neurology Psychiatry
DX: F42.9 Obsessive-compulsive disorder, unspecified (principal); K76.0 Fatty (change of) liver, not elsewhere classified; F31.9 Bipolar disorder, unspecified; F43.10 Post-traumatic stress disorder, unspecified; J45.909 Unspecified asthma, uncomplicated; K44.9 Diaphragmatic hernia without obstruction or gangrene; E66.3 Overweight; Z79.899 Other long term (current) drug therapy; Z87.440 Personal history of urinary (tract) infections; Z87.442 Personal history of urinary calculi; Z90.49 Acquired absence of other specified parts of digestive tract; Z98.51 Tubal ligation status; Z91.013 Allergy to seafood; F41.1 Generalized anxiety disorder; R10.11 Right upper quadrant pain; G47.00 Insomnia, unspecified; Z68.36 Body mass index [BMI] 36.0-36.9, adult